=== PATIENT | female | born 1990 | race African-American/Black ===

== ENCOUNTER 2023-02-05 12:00 | Emergency (ER) | payer MEDICAID ==
[~2023-02-05] VITALS: Ht 172.7 cm; Wt 98.4 kg
[2023-02-05 12:25] VITALS: BP 106/52; PULSE 92; RESP 18; TEMP 97.9; O2SAT 100
[2023-02-05] MEDS ORDERED: CAPS1ADH5 TP (12:55)
[2023-02-05] MEDS ORDERED: DICL100G5 TP (12:55)
[2023-02-05 13:01] VITALS: BP 106/52; PULSE 92; RESP 18; TEMP 97.9; O2SAT 100
== END 2023-02-05 13:01 | disposition home or self-care (01) ==
LOC: MED 12:00
DX: O99.891 Other specified diseases and conditions complicating pregnancy (principal); M54.32 Sciatica, left side; M54.31 Sciatica, right side; Z3A.17 17 weeks gestation of pregnancy
CPT/HCPCS: 81002; 81025; 99283